=== PATIENT | female | born 1980 | race Caucasian/White ===

== ENCOUNTER 2017-12-04 15:56 | Emergency (ER) | payer OTHER ==
[~2017-12-04] VITALS: Ht 167.6 cm; Wt 99.8 kg
[~2017-12-04 15:56] MED LIST: HYDROCODON-ACE1 EAC7 PO; MS CONTIN15 MG PO; NAPROSYN500 MG PO; NOHOMEMEDICATIONS; NORCO 5-325 TA1 EACH PO; PERCOCET 7.5-31 EACH
[2017-12-04 16:37] VITALS: BP 118/85
[2017-12-04] MEDS ORDERED: NOHOMEMEDICATIONS (16:42)
== END 2017-12-04 17:10 | disposition left against medical advice (07) ==
LOC: M.ERS 15:56
DX: Z53.21 Procedure and treatment not carried out due to patient leaving prior to being seen by health care provider (principal)